=== PATIENT | female | born 1950 | race Caucasian/White ===

== ENCOUNTER 2017-02-17 06:04 | Day surgery (SDC) | payer MEDICARE, OTHER ==
[2017-02-17] MEDS ORDERED: LACTATED RINGERS 1,000 ML ONE ×2 (06:19→08:28)
--- NOTE | 2017-02-17 09:00 | OP ---
DATE OF PROCEDURE: 02/17/17 PREOPERATIVE DIAGNOSIS: 1. History of colonic polyps. 2. Family history of colon cancer in her mother. POSTOPERATIVE DIAGNOSIS: 1. 0.5 by 0.5 cm ascending colon polyp, biopsied times 5 to obliteration. 2. Tortuous colon with less than optimal visualization of the proximal colon. PROCEDURE: 1. Colonoscopy plus biopsy. SURGEON: Emerson Quinonez MD. ESTIMATED BLOOD LOSS: Less than 1 mL. COMPLICATIONS: No immediate complications other than lack of optimal visualization of the proximal colon. ANESTHESIA: Propofol 620 mg administered intravenously by Luiz Eisenberg CRNA, using monitored anesthesia care. TECHNIQUE: The patient, the patient was taken to the Endoscopy Suite and placed in the left lateral decubitus position. Incremental doses of propofol were given until adequate conscious sedation was obtained. Vital signs were monitored throughout the procedure. Supplemental oxygen was administered throughout the procedure. Digital rectal examination was unremarkable. The colonoscope was then advanced into the patient's rectum and up through the sigmoid, descending, and transverse colon with relative ease. We began to experience significant looping around the hepatic flexure and more proximally. The cecum was reached, but could not be visualized passed the terminal ileum very well except for a few seconds on one occasion. The scope was withdrawn and re-inserted multiple times trying to get a good visualization of the ascending colon and hepatic flexure region. This never could be done to my satisfaction, though I do feel confident that no extremely large polyps were missed. There was one small polyp noted during this insertion and withdrawal and biopsies times 5 were taken to obliteration. Distal to the hepatic flexure , the visualization was actually quite good. Her bowel prep was good. There were some areas of liquid stool, however, that required me to suction as much of this out as I could. No other abnormalities were noted. In the rectum, the colonoscope was retroflexed upon itself. Grade 1 to 2 internal hemorrhoids were noted. The colonoscope was then unretroflexed and air was suctioned out of the patient's rectum. The colonoscope was removed from the patient. The patient tolerated the procedure well and was taken back to the recovery area in good condition. PLAN: 1. The patient will need repeat colonoscopy in 3 years. 2. Review results of the colonoscopy with the patient in 7 to 10 days. 3. We will likely have the researcher do her colonoscopy secondary to the poor visualization of her proximal colon. #[id number] MTDD
[2017-02-17 09:40] VITALS: BP 133/69; TEMP 97.2; O2SAT 99
[2017-02-17] MEDS ORDERED: PROPOFOL 200 MG/20 ML VIAL IV ONE (12:00)
== END 2017-02-17 09:20 | disposition home or self-care (01) ==
LOC: AMB 06:04
PROVIDERS: ATTEND Family Medicine
DX: Z12.11 Encounter for screening for malignant neoplasm of colon (principal); D12.2 Benign neoplasm of ascending colon; Q43.8 Other specified congenital malformations of intestine; I10 Essential (primary) hypertension; K21.9 Gastro-esophageal reflux disease without esophagitis; K59.00 Constipation, unspecified; M25.50 Pain in unspecified joint; R53.83 Other fatigue; E78.5 Hyperlipidemia, unspecified; J45.909 Unspecified asthma, uncomplicated; E53.8 Deficiency of other specified B group vitamins; Z80.0 Family history of malignant neoplasm of digestive organs; Z86.010 Personal history of colon polyps; Z88.2 Allergy status to sulfonamides; Z88.8 Allergy status to other drugs, medicaments and biological substances; Z79.82 Long term (current) use of aspirin; Z79.899 Other long term (current) drug therapy
CPT/HCPCS: 00810; 45380; 88305; J3490; J7120

== ENCOUNTER → 2017-04-16 | Outpatient (CLI) | payer MEDICARE, OTHER | END | disposition home or self-care (01) | LOC: GMAL 10:36 | PROVIDERS: ATTEND Family Medicine | DX: N39.0 Urinary tract infection, site not specified (principal) ==

== ENCOUNTER → 2017-04-22 | Outpatient (CLI) | payer MEDICARE, OTHER | END | disposition home or self-care (01) | LOC: GMAL 16:31 | PROVIDERS: ATTEND Family Medicine | DX: N39.0 Urinary tract infection, site not specified (principal) ==

== ENCOUNTER → 2017-06-30 | Outpatient (CLI) | payer MEDICARE, OTHER | LOC: GMAL 11:15 | PROVIDERS: ATTEND Family Medicine | DX: D51.3 Other dietary vitamin B12 deficiency anemia (principal); E55.9 Vitamin D deficiency, unspecified; R53.83 Other fatigue; I10 Essential (primary) hypertension ==

== ENCOUNTER → 2017-12-30 | Outpatient (CLI) | payer OTHER | LOC: GMAL 13:32 | PROVIDERS: ATTEND Family Medicine | DX: E55.9 Vitamin D deficiency, unspecified (principal) ==

== ENCOUNTER → 2018-08-24 | Outpatient (CLI) | payer OTHER | LOC: GMAL 10:40 | PROVIDERS: ATTEND Family Medicine | DX: D51.3 Other dietary vitamin B12 deficiency anemia (principal); E55.9 Vitamin D deficiency, unspecified ==

== ENCOUNTER → 2018-11-26 | Outpatient (CLI) | payer OTHER | LOC: GMAL 10:32 | PROVIDERS: ATTEND Family Medicine | DX: R53.82 Chronic fatigue, unspecified (principal); Z79.899 Other long term (current) drug therapy ==

== ENCOUNTER 2020-05-22 05:04 | Day surgery (SDC) | payer OTHER ==
[2020-05-22] MEDS ORDERED: BUPIVACAINE 0.5% 30 ML VIAL INJ ONE ×2 (09:54)
[2020-05-22] MEDS ORDERED: BETAMETHASONE ACETATE/BETAMETH 6 MG/ML VIAL IM ONE (09:54)
[2020-05-22] MEDS ORDERED: LIDOCAINE 1% 10 ML VIAL INJ ONE (09:54)
== END 2020-05-22 10:07 | disposition home or self-care (01) ==
LOC: AMB 05:04
PROVIDERS: ATTEND Family Medicine Sports Medicine
DX: M70.62 Trochanteric bursitis, left hip (principal); I10 Essential (primary) hypertension; K21.9 Gastro-esophageal reflux disease without esophagitis; E53.8 Deficiency of other specified B group vitamins; Z85.42 Personal history of malignant neoplasm of other parts of uterus; Z88.2 Allergy status to sulfonamides; Z88.8 Allergy status to other drugs, medicaments and biological substances; Z79.899 Other long term (current) drug therapy

== ENCOUNTER → 2020-06-12 | Outpatient (CLI) | payer OTHER ==
--- NOTE | 2020-06-13 14:42 | MRI ---
EXAM DESCRIPTION: Lumbar Spine w/o Contrast : Magnetic Resonance Imaging. CLINICAL HISTORY: RADICULOPATHY COMPARISON: MRI scan of the lumbar spine without contrast September 2011. TECHNIQUE: Multiplanar, multiple standard sequences, non contrast MRI, lumbar spine. FINDINGS: L5-S1: The disc is well visualized on axial T2 series 501, image 3. Marked loss of the disc space with minute of disc bulging anterior. 2 mm grade 1 retrolisthesis. Hypertrophic changes in the posterior flavum ligaments and facet joints (canal elements). No canal stenosis. Bilateral mild foraminal narrowing. L4-L5: Disc desiccation minimal disc space loss. Grade 1 retrolisthesis 2 mm. Posterior broad-based bulge with midline protrusion which is also migrating below the disc space 5 mm. Disc measurements are 1.5 x 0.7 cm. Herniation is new since the prior study. Hypertrophic changes in the canal elements. AP canal diameter 9.5 mm. Disc is bilateral effacing the subarticular recesses, more on the left. Disc bulge into the left foramen with hypertrophic facet resulting in foraminal stenosis which is also a new finding. Mild narrowing of the right foramen. L3-L4: Marked disc space loss with moderate endplate reactive change in the midline and left side. 2 mm retrolisthesis with minimal posterior bulging of disc remnant into the canal. Hypertrophic changes in the canal elements impressing on the posterior lateral thecal sac. No canal stenosis. Disc spur complex on the left with spondylosis and moderate narrowing of the left foramen. Mild to moderate narrowing of the right foramen. No change from the prior study. L2-L3: Disc desiccation and minimal disc space narrowing on the left, More severe on the right with moderate endplate reactive changes in the midline and right. 2 mm retrolisthesis. Moderate to severe narrowing of the right foramen. Hypertrophic changes in the canal elements impressing on the thecal sac, more right than left. Borderline stenosis of the right foramen and mild narrowing left foramen. This has progressed since the prior study. L1-L2: Disc desiccation. Disc space maintained on the left with moderate endplate changes in the midline and advanced endplate changes on the right. Disc spur complex encroaching on the foramen and abutting the exiting right L1 nerve. This has progressed since the prior study. Minimal posterior bulge of the disc. Hypertrophic changes in the canal elements with no canal stenosis. Mild narrowing of the left foramen. T12-L1: Disc desiccation predominantly in the midline and right side with Schmorl's nodes and posterior moderate endplate reactive changes. Tiny posterior bulge. This has progressed since the prior study. Hypertrophic changes in the canal elements abutting the thecal sac, but no canal stenosis. Bilateral mild foraminal narrowing. Primary L1-L3 levoscoliosis has increased since the prior study. Paravertebral soft tissues fatty. No vertebral muscular atrophy. Ectasia of the aorta.. Distal cord normal signal and caliber. Otherwise normal marrow signal in the remaining vertebral bodies and the posterior elements. Vertebral bodies are not compressed at any level. IMPRESSION: 1. Multilevel disc desiccation, disc space loss, spondylosis, degenerative hypertrophy of the facet joints and flavum ligaments. In general, there has been progressive unfavorable interval change in these elements since the prior study in 2011. 2. New midline L4-L5 disc protrusion and inferior extrusion of the disc, resulting in borderline mild central canal stenosis. There is also bilateral mass effect on the subarticular recesses, more on the left. Left foraminal stenosis is also a new finding since the prior study. 3. Spondylosis, facet hypertrophy, and stenosis of the right foramen has progressed at L2-L3 since the prior study. 4. L1-L2 disc right side spur complex encroaching on the right foramen and right L1 nerve has progressed since the prior study. 5. Please refer to FINDINGS for discussion of results at other specific disc space levels. Electronically signed by: Bob Canales MD 06/13/2020 2:40 PM [facility]
== END ==
LOC: MRI 14:10
PROVIDERS: ATTEND Family Medicine Sports Medicine
DX: M51.16 Intervertebral disc disorders with radiculopathy, lumbar region (principal); M24.28 Disorder of ligament, vertebrae; M46.96 Unspecified inflammatory spondylopathy, lumbar region; M47.26 Other spondylosis with radiculopathy, lumbar region; M48.061 Spinal stenosis, lumbar region without neurogenic claudication; R22.2 Localized swelling, mass and lump, trunk; M25.78 Osteophyte, vertebrae

== ENCOUNTER 2020-07-10 05:29 | Day surgery (SDC) | payer OTHER ==
[2020-07-10] MEDS ORDERED: BUPIVACAINE 0.5% 30 ML VIAL INJ ONE ×3 (07:26→08:53)
[2020-07-10] MEDS ORDERED: LIDOCAINE 1% 10 ML VIAL INJ ONE ×3 (07:26→08:53)
[2020-07-10] MEDS ORDERED: BETAMETHASONE ACETATE/BETAMETH 6 MG/ML VIAL IM ONE (07:51)
[2020-07-10] MEDS ORDERED: DEXAMETHASONE INJ 10 MG/ML VIAL ONE ×2 (07:58→11:30)
[2020-07-10] MEDS ORDERED: DEXAMETHASONE INJ 10 MG/ML VIAL IV ONE (08:54)
== END 2020-07-10 09:17 | disposition home or self-care (01) ==
LOC: AMB 05:29
PROVIDERS: ATTEND Family Medicine Sports Medicine
DX: M54.5 Low back pain (principal); M54.16 Radiculopathy, lumbar region; I10 Essential (primary) hypertension; K21.9 Gastro-esophageal reflux disease without esophagitis; E53.8 Deficiency of other specified B group vitamins; Z88.2 Allergy status to sulfonamides; Z88.8 Allergy status to other drugs, medicaments and biological substances; Z79.899 Other long term (current) drug therapy
CPT/HCPCS: 64483; 64484; J1100

== ENCOUNTER → 2020-09-26 | Outpatient (CLI) | payer OTHER | LOC: GMAL 11:45 | PROVIDERS: ATTEND Family Medicine | DX: E53.9 Vitamin B deficiency, unspecified (principal); E55.9 Vitamin D deficiency, unspecified; R53.82 Chronic fatigue, unspecified; I10 Essential (primary) hypertension; E11.65 Type 2 diabetes mellitus with hyperglycemia; E78.49 Other hyperlipidemia ==